=== PATIENT | female | born 2005 | race Caucasian/White ===

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

== ENCOUNTER 2024-12-13 08:41 | Day surgery (SDC) | payer MEDICAID, SELFPAY ==
--- NOTE | 2024-11-22 12:32 | HP.PCM_ITS ---
History and Physical
--- NOTE | 2024-11-22 12:32 | PCM.HP.BLA ---
History and Physical Date of Admission: 12/13/24 HPI: The patient is a 18 year old adult presenting for pre-operative visit. She is scheduled for laparoscopic bilateral salpingectomy and Nexplanon insertion, for sterilization and pelvic pain on 12/13/24. Procedure discussed along with risks, benefits and complications. Other alternatives discussed for management. Consent form signed? Yes. ? ? PAST MEDICAL HISTORY PAST MEDICAL HISTORYDiagnosisDate?ADHD (attention deficit hyperactivity disorder)??Anxiety??Asthma (HCC)??Autism (HCC)??Depression??Polycystic ovary syndrome??Scoliosis? ? ? PAST SURGICAL HISTORY PAST SURGICAL HISTORYProcedureLateralityDate?DENTAL SURGERY HX???caps placed?EXC INGROWN TOE NAIL REMOVALLeft??left big toe ? ? ? CURRENT MEDICATIONS Current Outpatient MedicationsMedicationSigDispenseRefill?amphetamine-dextroamphetamine XR (ADDERALL XR) 10 mg capsuleTake 1 capsule by mouth once daily for 30 days. Patient should start on November 16, 2024.30 capsule0?Etonogestrel-Ethinyl Estradiol 0.12-0.015 mg/24 hr vaginal ringUse 1 each vaginally as directed. insert ring vaginally, leave in for 24 days, remove for 4 and repeat1 each11?triamcinolone acetonide (KENALOG) 0.1 % ointmentApply to affected areas twice daily as needed, up to 21 days per month. Avoid application to the face, underarms, groin.30 g0?Clindamycin Phosphate (CLEOCIN T) 1 % lotionApply a pea sized amount to entire affected area in the AM60 mL5?ondansetron (ZOFRAN) 4 mg tabletTake 4 mg by mouth every 8 hours as needed for nausea/vomiting.???tretinoin (RETIN-A) 0.025 % topical creamApply a pea sized amount to entire affected area up to nightly as tolerated/ g2?albuterol HFA (PROVENTIL HFA, VENTOLIN HFA) 90 mcg/actuation inhalerInhale 2 Puffs as instructed.???SUMAtriptan (IMITREX) 50 mg tabletas needed for migraine headache (see administration instructions).???amphetamine-dextroamphetamine XR (ADDERALL XR) 10 mg capsuleTake 1 capsule by mouth once daily for 30 days.30 capsule0?amphetamine-dextroamphetamine XR (ADDERALL XR) 10 mg capsuleTake 1 capsule by mouth once daily for 30 days. Patient should start on October 17, 2024.30 capsule0?No current facility-administered medications for this visit. ? ? ALLERGIES: Seasonal Allergies ? PERSONAL HISTORY: [SOCIAL HISTORY] [SOCIAL HISTORY] Social History Tobacco Use ? Smoking status: Never ? Smokeless tobacco: Never Vaping Use ? Vaping status: current everyday user ? Substances: Nicotine, THC Substance Use Topics ? Alcohol use: No ? Drug use: Yes ? ? Types: Marijuana ? ? Comment: chronic pain constant allover body pain ? FAMILY HISTORY: FAMILY HISTORY FAMILY HISTORY ProblemRelationAge of Onset?HypertensionMother??Skin CancerMother??Breast [id number]?HypertensionFather??CancerMaternal Aunt?? cervical/uterine/breast?Breast CancerMaternal Aunt??Breast CancerOther?? paternal aunts in the 40's?Colon CancerMaternal Aunt??Cervical CancerMaternal Aunt? ? ? REVIEW OF SYMPTOMS: GENERAL: denies fevers or chills ENDOCRINOLOGY: has not been on steroids Cardiology : denies palpitations or chest pain Respiratory: denies SOB or cough Hematology: denies history of prolonged bleeding or easy bruising or VTE Allergy: Denies history of personal or family history of allergy to anesthesia ? PHYSICAL EXAMINATION: ? VITALS: Blood pressure 116/78, pulse 90, height 165.7 cm (5' 5.25), weight 65.3 kg (144 lb), last menstrual period 11/01/2024, SpO2 99%. ? GENERAL: The patient is well nourished, well hydrated in no acute distress. , The patient is oriented to time, place, and person. NECK: Supple. No lynphadenopathy, normal thyroid, no thyromegaly. LUNGS: Clear to auscultation bilaterally. no wheezes, rhonchi or rales HEART: Regular rate and rhythm, Normal heart sounds, and No murmurs or gallops ? IMPRESSION: sterilization request, pelvic pain ? PLAN: The risks/benefits/alternatives and personal involved for the planned laparoscopic bilateral salpignectomy and Nexplanon insertion were reviewed with the patient. Her questions were answered to her satisfaction and she desires to proceed. Consent was signed. I reviewed with her postop instructions and expectations. ? ? I have reviewed and updated past medical and surgical history, medications and allergies Assessment & Plan Assessment/Plan (1) Sterilization: (2) Nexplanon insertion: (3) Pelvic pain:
[2024-12-13] VITALS (9 sets, daily range): BP systolic 96–134; BP diastolic 73–87; PULSE 59–81; RESP 16–20; TEMP 36.2–37; O2SAT 98–100; BMI 24.2
[2024-12-13 09:10] LABS: Internal QC Validated? YES +Cl - CLEAR BKGD; Pregnancy, Urine Negative Negative; Record Kit Lot#,Urine Preg 980607
--- NOTE | 2024-12-13 09:22 | PCM.PRE.AN2 ---
ASA Classification* ASA Classification ASA Classification: 2 Assessment & Plan Anesthesia* Anesthesia Assessment Anesthesia Assessment: Discussed sedation and/or anesthesia options, risks, benefits, and alternatives with patient/parents/legal guardian/POA. Questions invited. The patient/parents/legal guardian/POA seems to understand and agrees to proceed with anesthesia plan. Reviewed the physical assessment, medical history, allergy history and patient home medications list prior to surgery/procedure/anesthetic and documented any changes. Performed airway and anesthesia risk assessments. Anesthesia Type Anesthesia Type: General Anesthesia Focused Assessment* Airway Assessment Mouth opens: >3 cm Mallampati Score: II Labs Anesthesia Preop lab: CBC WBC, (4.5-13.0) 15.3 K/mm3 H 05/31/21, 15:37 RBC, (4.1-4.8) 4.85 M/mm3 H 05/31/21, 15:37 Hgb, (12.0-15.0) 14.0 g/dL 05/31/21, 15:37 Hct, (37-46) 43.3 % 05/31/21, 15:37 Plt Count, (150-450) 326 K/mm3 05/31/21, 15:37 CHEMISTRY Potassium, (3.5-5.1) 3.7 mmol/L 05/31/21, 15:37 Sodium, (136-145) 141 mmol/L 05/31/21, 15:37 BUN, (7-18) 15 mg/dL 05/31/21, 15:37 Creatinine, (0.55-1.02) 0.76 mg/dL 05/31/21, 15:37 Glucose, (74-106) 84 mg/dL 05/31/21, 15:37 TSH, (0.358-3.74) 1.05 uIU/mL 04/18/17, 12:34 COAG Urine Test Negative Negative Today, 09:00 Pre-Assessment Diagnosis/Proposed Procedure Planned Operative Procedure(s): (B) Laparoscopic bilateral Salpingectomy, nexplanon insertion Anesthesia History Anesthesia History - special programs director: Anesthesia History - special programs director Hx Hospitalization No 11/25/24 14:10 Any Problems With Anesthesia No 11/25/24 14:10 Cholinesterase deficiency No 11/25/24 14:10 You/Your Family Experience No 11/25/24 14:10 fever (hyperthermia) with Relationship Recent Exposure to Contagious No 01/08/18 06:50 Disease Does patient have nerve No 11/25/24 14:10 stimulator Patient instructed to have device shut off --Does patient have Pacemaker or ICD? When Was Last Pacemaker Check QUESTION #4 FULL TEXT: You/Your Family Experience fever (hyperthermia) with Anesthesia Last Oral Intake Last Oral intake: Last Oral Intake NPO since Meds taken in AM with sips of water? Meds patient instructed to take am of surgery PONV PONV - special programs director: PONV - special programs director Female Yes 11/25/24 14:10 HX of Motion Sickness Yes 11/25/24 14:10 HX of N/V After Surgery No 11/25/24 14:10 Non-Smoker No 11/25/24 14:10 Duration of Surgery greater Yes 11/25/24 14:10 than 60 minutes Number of Risk Factors 3 11/25/24 14:10 PONV Score Moderate Risk 11/25/24 14:10 Height & Weight Height & Weight: Anesthesia: Height & Weight Height 5 ft 5 in 05/31/21 14:47 Respiratory Assessment Respiratory Assessment - special programs director: Respiratory Tract Infection Hx - special programs director Hx Respiratory Tract Infection No 11/25/24 14:10 STOP Sleep Apnea STOP Sleep Apnea - special programs director: STOP Sleep Apnea - special programs director Hx Hypertension No 11/25/24 14:10 Hx Sleep Apnea No 11/25/24 14:10 CPAP BIPAP Do you snore loudly (louder No 11/25/24 14:10 than talking or can be heard Do you often feel tired/ No 11/25/24 14:10 fatigued/ sleepy during daytime? Has anyone observed you stop No 11/25/24 14:10 breathing during sleep? STOP Results Negative 11/25/24 14:10 QUESTION #5 FULL TEXT : Do you snore loudly (louder than talking or can be heard through closed doors)? 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 Specify any problems Hx of Preganancy in last 3 No 11/25/24 14:10 Months Nurse Filling Out Transfusion MGRIFFITH 11/25/24 14:10 & Questions: Date: 11/25/24 11/25/24 14:10 Time: 14:11/25/24 14:10 Patient unable to answer at this time (ie. confused, unrespo /Reproduction History /Reproductive History - special programs director: /Reproductive Hx- special programs director Hx Now No 11/25/24 14:10 Gestational Age (in weeks): EDC: Hx Hx Para Hx Section SAB No 11/25/24 14:10 Active Medications Active Medications: Current Medications Generic Name Dose Route Start Last Admin Trade Name Freq PRN Reason Stop Dose Admin Acetaminophen 1,000 mg 12/13/24 10:35 Acetaminophen 500 Mg Tablet PO 12/13/24 10:36 X1 ONE Etonogestrel 68 mg 12/13/24 10:35 Etonogestrel 68 Mg Implant SC 12/13/24 10:36 X1 ONE Lactated Ringer's 1,000 mls @ 15 mls/hr 12/13/24 09:00 IV .Q48H LIZA Ketorolac Tromethamine 30 mg 12/13/24 10:35 Ketorolac 30 Mg/Ml Syringe IV 12/13/24 10:36 X1 ONE PFSH Medical History Fibromyalgia Wears glasses Autism ADHD Depression Anxiety Scoliosis Migraine headache Injury of head and neck Difficulty swallowing Difficulty chewing History of irregular heartbeat Smoker Frequent UTI Asthma Home Medications ?Medication ?Instructions ?Recorded ?Last Taken ?Type sumatriptan succinate 100 mg 100 mg PO DAILY PRN PRN migraine 01/03/18 Unknown History tablet (Imitrex) headache albuterol sulfate 90 mcg/actuation 1 - 2 puff inhalation Q4H PRN PRN 05/14/18 Unknown History aerosol inhaler (ProAir HFA) Wheezing ondansetron 4 mg disintegrating 4 mg PO Q8H PRN nausea and 05/31/21 Unknown Rx tablet vomiting #14 tabs dextroamphetamine-amphetamine ER 1 cap PO DAILY ADHD 11/25/24 Unknown History 10 mg 24hr capsule,extend release etonogestrel 0.12 mg-ethinyl 1 vag ring vaginal DAILY 11/25/24 Unknown History estradiol 0.015 mg/24 hr vaginal ring (EnilloRing) Allergy/AdvReac Type Severity Reaction Status Date / Time No Known Allergies Allergy Verified 11/25/24 14:04 Surgical History History of toe surgery History of wisdom tooth extraction History of tooth extraction Social History Smoking Status: Current every day smoker tobacco type: e-cigarettes Review of Systems (Anesthesia) ROS Narrative System reviewed and no additional complaints, except as documented.
[2024-12-13 09:26] LABS: Hematocrit 39.0 % (37-47); Hemoglobin 12.9 g/dL (12.0-15.0); Mean Corp Hgb Conc 33.1 g/dL (32-36); Mean Corpuscular Volume 88.8 fL (81-99); Mean Platelet Vol. 9.4 fl (6.2-12.0); Platelet Count 307 K/mm3 (150-450); RBC Distribution Width CV 11.8 % (11.6-14.6); RBC Distribution Width SD 38.3 fl (35.1-43.9); Red Blood Count 4.39 M/mm3 (4.2-5.4); White Blood Count 5.2 K/mm3 (4.4-11.0)
[2024-12-13] MEDS: Ketorolac 30 MG/ML Syringe IV (09:36)
[2024-12-13] MEDS: Lactated Ringers 1,000 ML 15 ML IV (09:36)
[2024-12-13] MEDS: Midazolam 2 MG/2 ML Syringe IV (10:17)
--- NOTE | 2024-12-13 10:19 | DCINST_ITS ---
Discharge Instructions
--- NOTE | 2024-12-13 10:19 | PCM.DC ---
Discharge Instructions DC O2, CPAP, BIPAP needs Home O2 Discharge instructions: No Dressing / Incision Discharge Activity: May Take a Tub Bath (in 1 week) Return to work on:: 12/16/24 May shower in (days): 1 May resume sexual activity in: 1-2 weeks Additional Activity Instructions:: Ambulate often the next week after surgery. Nothing in the vagina for 5 days. Dressing / Incision Call your doctor if your incision/area has: Continuous Slow Oozing, Sudden Increased Bleeding, Increased Pain/ Swelling, Increased Redness and Foul Smelling Discharge Call your doctor if you observe: Fever of 101 or Higher and Using more than 1 pad per hour Cleanse incision/area with: Soap & Water and Keep Dressing Clean & Dry (for the first 48 hrs if possible, leave the steri strips on for 7-10 days) Additional Dressing/Incision Instructions:: You can take the bandage off your Nexplanon site in 1-2 days, leave the steri strips on that incision for 3-4 days. Follow Up Care Please Follow Up With: Kaylah Mims MD When: Call [phone] or send a [employer] message for questions or concerns. Test Results: Test results from this visit will be discussed in further detail at your follow-up appointment, if applicable. Discharge Plan Admission Primary Reason for Your Visit: Tubal sterilization and Nexplanon insertion Attending Provider: Kaylah Mims Primary Care Provider: Iram Shabazz Instructions Print Language: Bermudian Discharge Orders/Prescriptions Prescriptions: New acetaminophen [Acetaminophen Extra Strength] 500 mg tablet 1,000 mg PO Q6H PRN (Reason: fever or pain) 20 Days Qty: 60 0RF ibuprofen 600 mg tablet 600 mg PO Q6H PRN (Reason: Pain) 20 Days Qty: 60 1RF oxycodone 5 mg tablet 5 mg PO Q8H PRN (Reason: severe pain) 7 Days Qty: 10 0RF Continued sumatriptan succinate [Imitrex] 100 MG tablet 100 mg PO DAILY PRN PRN (Reason: migraine headache) albuterol sulfate [ProAir HFA] 1 PUFF inhaler 1 - 2 puff inhalation Q4H PRN PRN (Reason: Wheezing) ondansetron 4 mg tablet,disintegrating 4 mg PO Q8H PRN (Reason: nausea and vomiting) Qty: 14 0RF dextroamphetamine-amphetamine 10 mg capsule,extended release 24hr 1 cap PO DAILY Referrals / Follow Up: Dean Don MATERIALS PLANNER/PRODUCTION PLANNER, MATERIALS PLANNER/PRODUCTION PLANNER-C [Non-Staff, Pediatrics] Disposition Disposition (needs filled in before D/C Order can be placed): Home, Self Care
[2024-12-13] MEDS: Lidocaine 1% (5 ml sdv) 5 ML Vial 6 ML IV (10:22)
--- NOTE | 2024-12-13 10:30 | FALS_PTH ---
PATIENT: XU LOBATO LOC: [facility] [place] U#:[id number] AGE/SX: 19/F ROOM: RE12/13/[address]: Dr. Kaylah Mims MD : 2005 BED: DIS: 12/13/2024 SPEC #: [id number] RECD: 12/13/24 13:27 STATUS: MARYCARMEN REQ #: [id number] VARSHA: 12/13/24 10:[address]: Kaylah Mims DEPT: SURGICAL PATHOLOGY RECD BY: Jose Jackson ENTERED: 12/13/24 15:17 SP TYPE: FALL TUBES OTHR DR: Dr. Iram Shabazz MD Tissues: A - Fallopian tube Procedures: Surgery Specimen Level II HEADER OPERATION: Laparoscopic bilateral salpingectomy PRE-OP DIAGNOSIS: Sterilization, pelvic pain TISSUE SUBMITTED: A- Bilateral fallopian tubes MICROSCOPIC DIAGNOSIS A. Bilateral fallopian tubes, laparoscopic bilateral salpingectomy: - Complete luminal cross-section confirmed, x2. MICROSCOPIC DESCRIPTION Slides are reviewed. GROSS DESCRIPTION A. Received in formalin labeled with the patient's name and date of . Designated as bilateral fallopian tubes are 2 undesignated red, fimbriated fallopian tubes in 3 pieces, devoid of orientation and measuring 5.6 x 0.6 cm and 5.4 x 0.6 cm. No lesions are grossly identified. Second Miller sections are submitted in 2 cassettes. [place] 12/13/2024 CPT:11696
[2024-12-13] MEDS: fentaNYL 100 MCG/2 ML Ampul IV (10:58)
--- NOTE | 2024-12-13 11:11 | OP.PCM_ITS ---
Operative Report (Standard)
--- NOTE | 2024-12-13 11:11 | PCM.OPRPT ---
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 Skin Tanner: Jez Neal [id number] Tasks completed by first assistant: Retracting Additional speech and language assistant?: No Type of Anesthesia: General RN Documented Start/Stop Times: Operation Date: 12/13/24 10:30 Case Time Into Pre-Op 12/13/24 08:57 Out of Pre-Op 12/13/24 10:15 Anesthesia Start 12/13/24 10:17 Into Room 12/13/24 10:17 Procedure Start 12/13/24 10:36 Procedure End 12/13/24 11:09 Procedure Start Time: 10:36 Procedure Stop Time: 11:09 Select all DRAINS/GRAFTS/IMPLANTS that apply: None Estimated Blood Loss: 10 Fluids Replaced: 800 cc Specimen collected: Yes Description of specimen(s) removed: bilateral fallopian tubes Description of surgery: The patient was taken to the operating room where she was prepped and draped in the dorsolithotomy position. A weighted speculum was placed in the vagina and the anterior lip of the cervix was grasped with a tenaculum. No uterine manipulator was placed. I placed a ring forcep on the cervix to help with the uterine manipulation. Attention was turned to the abdomen. All port sites were infiltrated with 0.5% Marcaine before skin incisions were made. A 5 mm [intraumbilical] incision was made. The anterior abdominal wall was tented up with 2 towel clamps while a 5 mm blade less trocar and sleeve were [directly inserted]. Intraperitoneal placement was confirmed with the laparoscope. The pneumoperitoneum was created and the underlying abdominal contents were intact. The patient was placed in Trendelenburg. Right and left lower quadrant ports were placed under direct visualization lateral to the inferior epigastric vessels. The bowel was swept away and the above findings were noted. The Enseal device was used to clamp seal and transect the antimesenteric portions of the right tube to the cornual insertion of the uterus. The tube was amputated from the uterus and the pedicles were all confirmed to be hemostatic. The same procedure was performed on the contralateral side. The specimens were brought out through a 5 mm port. The pedicles were again examined and found to be hemostatic. The lateral ports were removed under direct visualization and no active bleeding was noted. The pneumoperitoneum was released. The skin incisions were closed with Monocryl suture in a subcuticular fashion and Steri-Strips and OpSite's were placed over them. The vaginal instruments were removed and the vaginal sweep was completed by me. The left arm was then placed in an L-shaped position and the Nexplanon was placed in the left upper arm inferior to the biceps tendon in a subcuticular fashion in the usual sterile way. The skin was cleansed with Betadine. Steri-Strips and OpSite were placed over the site. The entire procedure was performed by me with assistance. All sponge and needle counts were correct and the patient was taken to the recovery room in stable condition. Surgical Findings: Normal cervix, uterus, tubes, ovaries, vagina and cervix. Normal liver. Normal peritoneal cavity. No evidence of endometriosis Complications Complications: No Admit VTE Documentation VTE Present on Admission: No VTE Mechan Device Prophylaxis: SCD's VTE Pharm Prophylaxis ordered?: No
--- NOTE | 2024-12-13 11:25 | POSTOP.ANE_ITS ---
Anesthesia: Postop Eval I
--- NOTE | 2024-12-13 11:25 | PCM.POST.ANE ---
Anesthesia: Postop Eval I Current Vital Signs Temperature: 98.3 F Pulse Rate: 81 Blood Pressure: 122/82 Respiratory Rate: 16 Pulse Ox: 98 Assessment Airway patent: Yes Spontaneous unlabored respirations: Yes nausea: No Vomiting: No Anesthesia Complication: No Fluid Hydration Crystalloid volume administer (ml): 700 Total IV fluid infused: 700 Progress Note Anesthesia document: Postop Eval 1 completed: Yes
--- NOTE | 2024-12-13 12:07 | POSTOPAN2_ITS ---
Anesthesia Postop Eval I Sum
--- NOTE | 2024-12-13 12:07 | PCM.POSTANE2 ---
Anesthesia Postop Eval I Sum Postop Eval Completion status Anesthesia document: Postop Eval 1 completed: Yes Anesthesia Postop Eval I Summary Anesthesia Postop Eval I Summary: Anesthesia Postop Eval I: Assessment Summary Airway patent Yes 12/13/24 11:25 CLINICAL RESEARCH COORDINATOR.[email or web address] Spontaneous unlabored Yes 12/13/24 11:25 CLINICAL RESEARCH COORDINATOR.TNES respirations Mental status nausea No 12/13/24 11:25 CLINICAL RESEARCH COORDINATOR.TNES Vomiting No 12/13/24 11:25 CLINICAL RESEARCH COORDINATOR.TNES Anesthesia Postop Eval I: Fluid Summary Crystalloid volume administer 700 12/13/24 11:25 CLINICAL RESEARCH COORDINATOR.TNES (ml) Colloids volume administered ( ml) Blood Product volume administered (ml) Total IV fluid infused 700 12/13/24 11:25 CLINICAL RESEARCH COORDINATOR.TNES Anesthesia Postop Eval I: Summary Notes Anesthesia Complication No 12/13/24 11:25 CLINICAL RESEARCH COORDINATOR.TNES Anesthesia Complication Comment: Post-operative progress note Anesthesia: Postop Eval II Evaluation Mental status: Awake Pain Level: 2 nausea: No Vomiting: No
== END 2024-12-13 14:28 | disposition home or self-care (01) ==
LOC: SDC 08:44 → AC 08:46
PROVIDERS: PCP Internal Medicine; Referring Provider Obstetrics & Gynecology; Visit Provider Obstetrics & Gynecology
PROC: (CPT 58661; principal; 2024-12-13 10:15)
DX: Z30.2 Encounter for sterilization (principal); R10.20 Pelvic and perineal pain unspecified side; Z30.46 Encounter for surveillance of implantable subdermal contraceptive; J45.909 Unspecified asthma, uncomplicated; F17.290 Nicotine dependence, other tobacco product, uncomplicated
CPT/HCPCS: 58661; 11981; 00840; 81025; 85027; 88302; A4216; J2405